=== PATIENT | female | born 1995 | race Caucasian/White ===

== ENCOUNTER 2018-05-09 10:14 | Emergency (ER) | payer OTHER ==
[~2018-05-09] VITALS: Ht 154.9 cm; Wt 49.9 kg
== END 2018-05-09 15:44 | disposition home or self-care (01) ==
LOC: ER 10:14
DX: R10.31 Right lower quadrant pain (principal); N83.292 Other ovarian cyst, left side; N39.0 Urinary tract infection, site not specified